=== PATIENT | female | born 1985 | race Caucasian/White ===

== ENCOUNTER → 2018-07-04 | Outpatient (CLI) | payer OTHER ==
[~2018-07-04] MED LIST: ALPRazolam 1MG TABLET ONE
== END | disposition home or self-care (01) ==
LOC: RAD 11:20
PROVIDERS: ATTEND Family Medicine
DX: M47.816 Spondylosis without myelopathy or radiculopathy, lumbar region (principal); Q05.7 Lumbar spina bifida without hydrocephalus
CPT/HCPCS: 72148

== ENCOUNTER 2019-12-15 02:55 | Emergency (ER) | payer MEDICAID, OTHER ==
[~2019-12-15] VITALS: Ht 170.2 cm; Wt 97.1 kg
--- NOTE | 2019-12-15 03:15 | NUR ---
REPORTS LOWER ABD CRAMPING AND NAUSEA X1 DAY.
[2019-12-15] MEDS ORDERED: KETOROLAC 30 MG/1 ML ONE (03:43)
[2019-12-15] MEDS ORDERED: ONDANSETRON ODT 4 MG ONE (03:43)
[2019-12-15 03:53] LABS: BASOPHILS # (AUTO) 0.12 x10^3/uL (0-0.1); BASOPHILS % (AUTO) 1 % (0-1); EOSINOPHILS # (AUTO) 0.17 x10^3/uL (0-0.4); EOSINOPHILS % (AUTO) 1 % (1-7); LYMPHOCYTES # (AUTO) 2.19 x10^3/uL (1-3.4); LYMPHOCYTES % (AUTO) 16 % (22-44); MD NO; MEAN CORPUSCULAR HEMOGLOBIN 30.9 pg (27.0-34.8); MEAN CORPUSCULAR HGB CONC 33.3 g/dL (32.4-35.8); MEAN CORPUSCULAR VOLUME 93.1 fL (80-100); MEAN PLATELET VOLUME 8.6 fL (7.4-10.4); MONOCYTES # (AUTO) 1.07 x10^3/uL (0.2-0.8); MONOCYTES % (AUTO) 8 % (2-9); NEUTROPHILS # (AUTO) 10.06 x10^3/uL (1.8-6.8); NEUTROPHILS % (AUTO) 74 % (42-75); PLATELET COUNT 324 x10^3/uL (130-400); RED BLOOD COUNT 4.08 x10^6/uL (3.82-5.3); RED CELL DISTRIBUTION WIDTH 13.6 % (9.6-15.2)
[2019-12-15] MEDS ORDERED: ONDANSETRON ODT 4 MG PO ONE (04:00)
[2019-12-15] MEDS ORDERED: KETOROLAC 30 MG/1 ML IM ONE (04:00)
[2019-12-15 04:03] LABS: ANION GAP 7 mmol/L (5-15); CALCIUM 8.5 mg/dL (8.5-10.1); CHLORIDE 106 mmol/L (98-107)
[2019-12-15 04:20] LABS: HCG UR SG 1.025 (1.003-1.030); MICROSCOPIC AUTO
[2019-12-15 04:38] VITALS: BP 100/56
--- NOTE | 2019-12-15 04:38 | NUR ---
PT REPORTS ABD PAIN HAS SUBSIDED TO 4/10, DENIES CURRENT NAUSEA.
== END 2019-12-15 05:04 | disposition home or self-care (01) ==
LOC: ED 03:27
DX: A04.9 Bacterial intestinal infection, unspecified (principal); R11.0 Nausea; R10.30 Lower abdominal pain, unspecified
CPT/HCPCS: 36415; 80048; 81001; 81025; 85025; 87086; 96372; 99283; J1885; Q0162

== ENCOUNTER 2020-12-20 02:05 | Emergency (ER) | payer MEDICAID ==
[~2020-12-20] VITALS: Ht 170.2 cm; Wt 95.0 kg
--- NOTE | 2020-12-20 02:36 | NUR ---
PT. TO ROOM FROM LOBBY VIA W/C AT THIS TIME.
[2020-12-20 02:56] LABS: MICROSCOPIC NOT IND
[2020-12-20] MEDS ORDERED: KETOROLAC 30 MG/1 ML IVPush ONE (03:00)
[2020-12-20] MEDS ORDERED: ONDANSETRON 2MG/ML, 2ML IVPush ONE (03:00)
[2020-12-20] MEDS ORDERED: MORPHINE SULFATE 4 MG/ML, 1ML IVPush PRN (03:00)
--- NOTE | 2020-12-20 03:01 | NUR ---
BREAK RN: PT. TO ED WITH C/O SUDDEN ONSET LEFT FLANK PAIN STARTING AT 1800. C/O NAUSEA BUT DENIES VOMITING OR DIARRHEA. C/O LOWER ABD PAIN THAT RADIATES ACROSS ABD. DENIES DYSURIA. IV ESTABLISHED. BLOOD DRAWN. URINE SENT. BS REPORT TO FRANCISCO WALTERS TO ASSUME CARE OF PT.
[2020-12-20] MEDS ORDERED: ONDANSETRON 2MG/ML, 2ML ONE (03:02)
[2020-12-20] MEDS ORDERED: KETOROLAC 30 MG/1 ML ONE (03:02)
[2020-12-20] MEDS ORDERED: ALPR0.25 PO (03:06)
[2020-12-20 03:07] LABS: BASOPHILS % (AUTO) 0 % (0-1); EOSINOPHILS % (AUTO) 2 % (1-7); LYMPHOCYTES % (AUTO) 15 % (22-44); MEAN CORPUSCULAR HEMOGLOBIN 31.1 pg (27.0-34.8); MEAN CORPUSCULAR HGB CONC 33.8 g/dL (32.4-35.8); MEAN PLATELET VOLUME 8.4 fL (7.4-10.4); MONOCYTES % (AUTO) 6 % (2-9); NEUTROPHILS % (AUTO) 78 % (42-75); PLATELET COUNT 334 x10^3/uL (130-400); RED BLOOD COUNT 4.32 x10^6/uL (3.82-5.3); RED CELL DISTRIBUTION WIDTH 13.1 % (9.6-15.2)
[2020-12-20 03:19] LABS: ALANINE AMINOTRANSFERASE 22 U/L (12-78); ALBUMIN 3.6 g/dL (3.4-5.0); ANION GAP 5 mmol/L (5-15); CALCIUM 8.8 mg/dL (8.5-10.1); CHLORIDE 106 mmol/L (98-107); CREATININE 0.89 mg/dL (0.55-1.02)
[2020-12-20 03:23] LABS: ALKALINE PHOSPHATASE 51 U/L (45-117); BILIRUBIN,TOTAL 0.8 mg/dL (0.2-1.0); TOTAL PROTEIN 7.8 g/dL (6.4-8.2)
[2020-12-20] MEDS ORDERED: MORPHINE SULFATE 4 MG/ML, 1ML ONE (03:42)
[2020-12-20 05:02] VITALS: BP 119/68
--- NOTE | 2020-12-20 05:24 | NUR ---
PT REPORTS "I FEEL BETTER AFTER THE MEDICATIONS". GIVEN DC INSTRUCTIONS, VERBAIZES UNDERSTANDING AND ALL QUESTIONS ANSWERED.
== END 2020-12-20 05:32 | disposition home or self-care (01) ==
LOC: ED 05:28
DX: K57.32 Diverticulitis of large intestine without perforation or abscess without bleeding (principal); R10.84 Generalized abdominal pain; M54.5 Low back pain
CPT/HCPCS: 36415; 74176; 80053; 81003; 84703; 85025; 96374; 96375; 99284; J1885; J2270; J2405